=== PATIENT | female | born 1955 | race Caucasian/White ===

== ENCOUNTER 2018-06-19 05:30 | Day surgery (SDC) | payer OTHER ==
[~2018-06-19 05:30] MED LIST: EVISTA60 MG PO; GABAPENTIN100 MG PO; LIPITO PO; RELAFEN PO; ZANAFLEX2 M1 PO; [UNRECOGNIZED DRUG - OTHER] PO
== END 2018-06-19 15:03 | disposition home or self-care (01) ==
LOC: CIR.AMB 05:30
DX: N95.0 Postmenopausal bleeding (principal)